=== PATIENT | male | born 1950 | race Caucasian/White ===

== ENCOUNTER 2021-01-04 13:16 | Emergency (ER) | payer MEDICARE ==
[~2021-01-04] VITALS: Ht 175.3 cm; Wt 68.2 kg
[2021-01-04 13:18] VITALS: BP 168/94; TEMP 97.9
[2021-01-04 14:01] LABS: BASO % 0.5 % (0.0-2.0); EOS # 0.2 (0.0-0.7); EOS % 2.4 % (0-4.0); GRAN # 5.9 (1.4-6.5); GRAN % 70.8 % (42.2-75.2); HEMATOCRIT 42.9 % (42.0-52.0); HEMOGLOBIN 14.1 g/dl (13.5-18.0); LYMPH # 1.5 (1.2-3.4); LYMPH % 18.1 % (20.0-51.0); MEAN CELL VOLUME 99 fl (80.0-100.0); MEAN CORPUSCULAR HEMOGLOBIN 33 pg (27.0-31.0); MEAN CORPUSCULAR HGB CONC 33 g/dl (33.0-37.0); MEAN PLATELET VOLUME 8.7 fl (7.4-10.4); MONO # 0.7 (0.1-0.6); MONO % 7.8 % (1.7-9.3); PLATELET COUNT 252 K/mm3 (130-400); RED BLOOD COUNT 4.34 M/mm3 (4.20-5.60); REDCELL DISTRIBUTION WIDTH-CV 13.8 % (11.5-14.5)
[2021-01-04 14:11] LABS: ALANINE AMINOTRANSFERASE 17 U/L (4-49); ALBUMIN 4.3 gm/dL (3.5-5.0); ALKALINE PHOSPHATASE 51 U/L (50-136); ANION GAP 7 mmol/L (7-16); AST,SGOT 30 U/L (15-37); BILIRUBIN,TOTAL 0.5 mg/dL (0.0-1.0); BLOOD UREA NITROGEN 22 mg/dL (9-20); CALCIUM 9.4 mg/dL (8.4-10.2); CARBON DIOXIDE 28 mmol/L (22-30); CHLORIDE 105 mmol/L (98-107); CREATININE, serum 1.03 (0.66-1.25); GLUCOSE 98 mg/dL (74-106); POTASSIUM 4.1 mmol/L (3.4-5.0); SODIUM 140 mmol/L (137-145); TOTAL PROTEIN 7.1 gm/dL (6.4-8.2)
[2021-01-04 14:18] LABS: ALCOHOL(ethanol),MEDICAL < 10 mg/dL
[2021-01-04 14:31] LABS: INR 1.1 (0.8-3.0); PROTHROMBIN TIME 12.4 SECONDS (9.7-12.8)
[2021-01-04 16:19] VITALS: PULSE 64
== END 2021-01-04 16:18 | disposition home or self-care (01) ==
LOC: COL.ER 13:16
PROVIDERS: Emergency Medicine
DX: R10.9 Unspecified abdominal pain (principal); R07.81 Pleurodynia; F17.200 Nicotine dependence, unspecified, uncomplicated; V89.2XXA Person injured in unspecified motor-vehicle accident, traffic, initial encounter
CPT/HCPCS: J2405; J3010; J7030; Q9967